=== PATIENT | female | born 1975 | race Caucasian/White ===

== ENCOUNTER 2016-11-25 09:56 | Inpatient (IN) | payer MEDICAID ==
[~2016-11-25] VITALS: Ht 157.5 cm; Wt 109.0 kg
[~2016-11-25 09:56] MED LIST: ACET325T33 PO; CALCIUM BC; CEPH-443 PO; IRON BC; PNV; PNV BC; PREN-46 PO
[2016-11-25 10:48] VITALS: BP 123/63; PULSE 75; RESP 17
[2016-11-25] MEDS: LACTATED RINGER'S 1,000 ML IV SCH ×3 (11:36→19:16)
[2016-11-25 12:07] LABS: BASOPHILS % 0.5 % (0.0-2.0); EOSINOPHILS # 0.2 10^3/ul (0.0-0.5); HEMATOCRIT 37.4 % (37.0-47.0); HEMOGLOBIN 12.9 g/dl (12.0-16.0); LYMPHOCYTES # 1.4 10^3/ul (0.8-2.9); LYMPHOCYTES % 16.8 % (15.0-51.0); MEAN CORPUSCULAR HEMOGLOBIN 30.4 pg (29.0-33.0); MEAN CORPUSCULAR HGB CONC 34.5 g/dl (32.0-37.0); MEAN CORPUSCULAR VOLUME 88.2 fl (82.0-101.0); MONOCYTE # 0.6 10^3/ul (0.3-0.9); MONOCYTES % 7.2 % (0.0-11.0); NEUTROPHIL # 5.9 10^3/ul (1.6-7.5); PLATELET COUNT 215 10^3/UL (140-415); RED BLOOD COUNT 4.24 10^6/ul (4.20-5.40); RED CELL DISTRIBUTION WIDTH 12.7 % (11.5-14.5); WHITE BLOOD COUNT 8.2 10^3/ul (4.8-10.8)
[2016-11-25 12:32] LABS: ALBUMIN 3.8 g/dl (3.3-4.9); ALBUMIN/GLOBULIN RATIO 1.11; BILIRUBIN,INDIRECT 0.2 mg/dl (0-1.1); BILIRUBIN,TOTAL 0.2 mg/dl (0.2-1.3); CALCIUM 9.1 mg/dl (8.4-10.2); CREATININE 0.53 mg/dl (0.44-1.00); POTASSIUM 3.9 mmol/L (3.5-5.1); TOTAL PROTEIN 7.2 g/dl (6.1-8.1); URIC ACID 4.8 mg/dl (3.1-7.9)
[2016-11-25 12:45] LABS: ADD UMIC NO; UR BILIRUBIN (Dip) NEGATIVE (NEGATIVE); UR BLOOD (Dip) NEGATIVE (NEGATIVE); UR CLARITY CLEAR (CLEAR); UR COLOR YELLOW (YELLOW); UR GLUCOSE (Dip) NEGATIVE (NEGATIVE); UR KETONES (Dip) NEGATIVE (NEGATIVE); UR LEUKOCYTE ESTERASE (Dip) NEGATIVE Leu/ul (NEGATIVE); UR NITRITE (Dip) NEGATIVE (NEGATIVE); UR TOTAL PROTEIN (Dip) NEGATIVE (NEGATIVE); UR UROBILINOGEN (Dip) 0.2 E.U./dL mg/dL (NEGATIVE)
--- NOTE | 2016-11-25 20:35 | HP ---
Date/Time of Note Date/Time of Note DATE: 11/25/16 TIME: 20:28 OB - History Hx of Present Chief Complaint: oligohydramnios Estimated Due Date: Jan 13, 2017 : 4 Para: 2 Spontaneous : 1 Therapeutic : 0 Care: Good Care Ultrasounds: Normal mid trimester US Obstetrical Complications: Gestational Hypertension Medical Complications: None Past Family/Social History * Past Medical, Surgical, Family and Obstetric Histories reviewed from chart. OB Admission Exam Physical Exam HEENT: WNL Heart: Rhythm Normal Lungs: Clear, Equal Abdomen: WNL Extremities: Normal Reflexes: Normal Heart Rate: 140's Accelerations: Accelerations Present Decelerations: No Decelerations Varibility: Moderate OB Assessment/Plan Reason for admission: other Other Assessment: oligohyramnios Plan: Other Other plan: IV hydration Continuous monitoring Repeat DAHLIA on 11/26/2016 Perinatology consult 24 hour urine collection PIH panel. DERECK BRIONES MD Nov 25, 2016 20:35
[2016-11-26] MEDS: LACTATED RINGER'S 1,000 ML IV SCH ×3 (03:04→18:24)
--- NOTE | 2016-11-26 08:30 | RADRPT ---
PROCEDURE: US OB. CLINICAL INDICATION: Low DAHLIA , pain TECHNIQUE: Transabdominal views of the pelvis are available for review. COMPARISON: No prior studies are available for comparison. FINDINGS: There is a single intrauterine gestation in a vertex position. The heart rate is noted at 128 bpm. The placenta is anterior. The DAHLIA measures 8.5 cm. RPTAT: AA IMPRESSION: Normal DAHLIA. .Ronald Chowdary MD, MD Date Time Electronically viewed and signed by .Ronald Chowdary MD, on 11/26/2016 08:30 .S/
--- NOTE | 2016-11-26 19:38 | QN ---
Documentation Comment No complaint Afebrile VSS Strip Category I DAHLIA improved Continue in hospital care per Perinatology Repeat DAHLIA on 11/27/2016. DERECK BRIONES MD Nov 26, 2016 19:38
[2016-11-27] MEDS: LACTATED RINGER'S 1,000 ML IV SCH (02:21)
--- NOTE | 2016-11-27 05:41 | NEURPT ---
DATE: 11/26/2016 COMMENTS: The patient was admitted to the hospital secondary to oligohydramnios that was seen in the testing clinic. Overnight, she was given fluid, and her fluid today is 8.2 cm, which is an improvement from 3 cm yesterday. She does have gestational hypertension. Her blood pressures in the hospital have been normal to moderate range. heart tone is reassuring. RECOMMENDATION: I do recommend to keep the patient overnight with IV hydration. If tomorrow her fluid remains the same, then patient can be discharged home with a follow-up on Tuesday at the perinatology clinic. If the fluid again is less than 6 cm, then patient needs to stay for IV hydration until at least Tuesday. Dictated By: Dayana Tapia MD /teresa/ananya /Document#: [id number]
--- NOTE | 2016-11-27 07:23 | RADRPT ---
PROCEDURE: US evaluation of amniotic fluid volume. CLINICAL INDICATION: Low amniotic fluid volume. TECHNIQUE: Multiple sonographic images of the gravid uterus were obtained utilizing omalley-scale wero ging. Sagittal and transverse images were obtained. The images were reviewed on a PACS workstation . DAHLIA was measured. COMPARISON: 11/26/2016. FINDINGS: There is a single live intrauterine . heart rate is 139 beats per minute. Position is cephalic. Placenta is anterior grade II with no abruption or previa. DAHLIA is 8.2 cm. (Normal = 5-20 cm.) IMPRESSION: 1. DAHLIA is 8.2 cm. RPTAT: QQ .Jesse Blanchard MD, Date Time Electronically viewed and signed by .Jesse Blanchard MD, on 11/27/2016 07:23 .R/
--- NOTE | 2016-11-27 17:38 | QN ---
Documentation Comment Patient has no complaint Afebrile VSS NST Category I DAHLIA 8.2 Per recommendation of Perinatology, D/C home. Follow up with Perinatology on 11/29/2016. DERECK BRIONES MD Nov 27, 2016 17:38
--- NOTE | 2016-11-27 17:39 | DS ---
Date/Time of Note Date/Time of Note DATE: 11/27/16 TIME: 17:38 Obstetrical Discharge Record Final Diagnosis Final Diagnosis: not delivered Other Final Diagnosis oligo hydramnios Condition on Discharge Physical Assessment Voiding: Yes Bowel Movement: Yes Calf Tenderness: No Patient Condition: Stable DERECK BRIONES MD Nov 27, 2016 17:39
--- NOTE | 2016-11-27 19:21 | QN ---
Documentation Comment Patient is 4 para 2 at 33 weeks and 2 days of gestation who was admitted for oligohydramnios VSS NST Cat 1 [place] none DAHLIA on November 25 3.2 DAHLIA on November 26 8.5 DAHLIA on November 27 8.2 PROCEDURE: US evaluation of amniotic fluid volume. CLINICAL INDICATION: Low amniotic fluid volume. TECHNIQUE: Multiple sonographic images of the gravid uterus were obtained utilizing omalley-scale imaging. Sagittal and transverse images were obtained. The images were reviewed on a PACS workstation. DAHLIA was measured. COMPARISON: 11/26/2016. FINDINGS: There is a single live intrauterine . heart rate is 139 beats per minute. Position is cephalic. Placenta is anterior grade II with no abruption or previa. DAHLIA is 8.2 cm. (Normal = 5-20 cm.) IMPRESSION: 1. DAHLIA is 8.2 cm. RPTAT: QQ .Jesse Blanchard MD, MD Date Time Electronically viewed and signed by .Jesse Blanchard MD, MD on 11/27/2016 07:23 .R/ CC: DERECK BRIONES MD Patient has been under the care of perinatologist for -induced hypertension Patient was discharged home today She has a follow-up appointment on Tuesday with the perinatologist JESÚS CALHOUN MD Nov 27, 2016 19:21
== END 2016-11-27 12:45 | disposition home or self-care (01) | DRG 782 ==
LOC: OBG 09:56 → EDSTATUS 01-12 09:54
PROVIDERS: ADMIT Obstetrics & Gynecology; ATTEND Obstetrics & Gynecology
DX: O41.03X0 Oligohydramnios, third trimester, not applicable or unspecified (principal); O09.523 Supervision of elderly multigravida, third trimester; Z3A.33 33 weeks gestation of pregnancy
CPT/HCPCS: 76815; 76816; 80053; 81003; 84112; 84560; 85025; J7120

== ENCOUNTER 2016-12-30 10:22 | Inpatient (IN) | payer MEDICAID ==
[~2016-12-30] VITALS: Ht 157.5 cm; Wt 110.0 kg
[~2016-12-30 10:22] MED LIST changes: -ACET325T33 PO; -CEPH-443 PO; -IRON BC; -PNV; -PNV BC
[2016-12-30 10:58] VITALS: Ht 157.5 cm; Wt 110.0 kg
[2016-12-30 10:59] VITALS: BP 137/79; PULSE 88
[2016-12-30] MEDS ORDERED: OXYTOCIN 30 UNITS/LR 500 ML IV SCH ×2 (11:30)
[2016-12-30] MEDS ORDERED: MISOPROSTOL 200 MCG TAB PR PRN (11:30)
[2016-12-30] MEDS ORDERED: LACTATED RINGER'S 1,000 ML IV PRN (11:30)
[2016-12-30] MEDS ORDERED: CARBOPROST 250 MCG INJ IM PRN (11:30)
[2016-12-30] MEDS ORDERED: BUTORPHANOL 2 MG INJ IV PRN ×2 (11:30)
[2016-12-30] MEDS ORDERED: LIDOCAINE 1% (MPF) 30 ML INJ INJ PRN (11:30)
[2016-12-30] MEDS ORDERED: METHYLERGONOVINE 0.2 MG INJ IM PRN (11:30)
[2016-12-30] MEDS ORDERED: OXYTOCIN 30 UNITS/LR 500 ML IV PRN (11:30)
[2016-12-30 12:19] LABS: BASOPHILS % 0.4 % (0.0-2.0); EOSINOPHILS # 0.1 10^3/ul (0.0-0.5); EOSINOPHILS % 0.8 % (0.0-7.0); HEMATOCRIT 35.7 % (37.0-47.0); HEMOGLOBIN 12.7 g/dl (12.0-16.0); LYMPHOCYTES # 1.5 10^3/ul (0.8-2.9); LYMPHOCYTES % 16.2 % (15.0-51.0); MEAN CORPUSCULAR HGB CONC 35.6 g/dl (32.0-37.0); MEAN CORPUSCULAR VOLUME 87.1 fl (82.0-101.0); MEAN PLATELET VOLUME 11.5 fl (7.4-10.4); MONOCYTE # 0.7 10^3/ul (0.3-0.9); MONOCYTES % 7.9 % (0.0-11.0); NEUTROPHIL # 6.6 10^3/ul (1.6-7.5); NEUTROPHILS % 73.4 % (39.0-77.0); PLATELET COUNT 218 10^3/UL (140-415); RED CELL DISTRIBUTION WIDTH 13.1 % (11.5-14.5)
[2016-12-30] MEDS: LACTATED RINGER'S 1,000 ML IV SCH ×3 (12:19→23:06)
[2016-12-30] MEDS ORDERED: DINOPROSTONE 10 MG VAG SUPP VAG ONE (12:30)
[2016-12-30 12:36] LABS: INR 0.99; PROTIME 13.1 Sec (12.2-14.2)
[2016-12-30 17:42] LABS: ALBUMIN 3.5 g/dl (3.3-4.9); ALBUMIN/GLOBULIN RATIO 1.09; BILIRUBIN,INDIRECT 0.1 mg/dl (0-1.1); BILIRUBIN,TOTAL 0.1 mg/dl (0.2-1.3); CALCIUM 8.5 mg/dl (8.4-10.2); CREATININE 0.51 mg/dl (0.44-1.00); POTASSIUM 3.9 mmol/L (3.5-5.1); TOTAL PROTEIN 6.7 g/dl (6.1-8.1); URIC ACID 5.8 mg/dl (3.1-7.9)
[2016-12-30 18:41] LABS: ADD UMIC NO; UR ASCORBIC ACID NEGATIVE (NEGATIVE); UR BILIRUBIN (Dip) NEGATIVE (NEGATIVE); UR BLOOD (Dip) NEGATIVE (NEGATIVE); UR CLARITY CLEAR (CLEAR); UR COLOR STRAW (YELLOW); UR GLUCOSE (Dip) NEGATIVE (NEGATIVE); UR KETONES (Dip) NEGATIVE (NEGATIVE); UR LEUKOCYTE ESTERASE (Dip) NEGATIVE Leu/ul (NEGATIVE); UR NITRITE (Dip) NEGATIVE (NEGATIVE); UR SPECIFIC GRAVITY (Dip) 1.003 (1.003-1.030); UR TOTAL PROTEIN (Dip) NEGATIVE (NEGATIVE); UR UROBILINOGEN (Dip) NEGATIVE (NEGATIVE)
[2016-12-30] MEDS ORDERED: ACETAMINOPHEN 1000MG/100ML IV 100 ML IVPB ONE (20:00)
[2016-12-31] MEDS ORDERED: OXYTOCIN 30 UNITS/LR 500 ML IV SCH
[2016-12-31] MEDS ORDERED: LACTATED RINGER'S 1,000 ML IV ONE (02:10)
[2016-12-31] MEDS ORDERED: KETOROLAC 30 MG INJ IV PRN (02:30)
[2016-12-31] MEDS ORDERED: NALOXONE (0.4 MG/ML) INJ IV PRN (02:30)
[2016-12-31] MEDS ORDERED: NALBUPHINE HCL (10 MG/1 ML) INJ IV PRN (02:30)
[2016-12-31] MEDS ORDERED: ONDANSETRON 4 MG INJ IV ONE (02:30)
[2016-12-31] MEDS ORDERED: ONDANSETRON 4 MG INJ IV PRN (02:30)
[2016-12-31] MEDS ORDERED: TRIMETHOBENZAMIDE 100 MG/ML VIAL IM PRN (02:30)
[2016-12-31] MEDS ORDERED: morphine 4 MG/ML VIAL IV PRN (02:30)
[2016-12-31] MEDS ORDERED: FENTAnyl 2MCG/ML-ROPIV 0.2% 100 ML BAG EPI SCH (02:30)
[2016-12-31] MEDS ORDERED: DIPHENHYDRAMINE 50 MG INJ IV PRN (02:30)
[2016-12-31] MEDS ORDERED: morphine 2 MG INJ IV PRN (02:30)
[2016-12-31] MEDS ORDERED: CITRIC ACID/NA CITRATE 30 ML CUP PO ONE (02:30)
[2016-12-31] MEDS: LACTATED RINGER'S 1,000 ML IV SCH (03:23)
[2016-12-31] MEDS: IBUPROFEN 600 MG TAB PO SCH ×3 (06:00→17:22)
[2016-12-31] MEDS ORDERED: LANOLIN 7 GM TUBE TOP PRN (06:00)
[2016-12-31] MEDS ORDERED: LACTATED RINGER'S 1,000 ML IV* SCH (06:00)
[2016-12-31] MEDS ORDERED: METHYLERGONOVINE 0.2 MG INJ IM PRN (06:00)
[2016-12-31] MEDS ORDERED: OXYTOCIN 30 UNITS/LR 500 ML IV PRN (06:00)
[2016-12-31] MEDS ORDERED: MISOPROSTOL 200 MCG TAB PR PRN (06:00)
[2016-12-31] MEDS ORDERED: CARBOPROST 250 MCG INJ IM PRN (06:00)
--- NOTE | 2016-12-31 06:05 | LDN ---
Date/Time of Note Date/Time of Note DATE: 12/31/16 TIME: 06:03 Delivery Summary of a viable baby girl weighing 2865 grams or 6# 5 oz, 18" long, and with Apgars of 8/9. Weeks of Gestation 38w 1d Placenta Delivered: Spontaneously Meconium: none Episiotomy: No Perineal laceration: 1 Laceration repair: First degree perineal laceration repaired with 2-0 chromic. Anesthesia type: Epidural Estimated blood loss: 200 Sponge & Needle done & correct: Yes All needle counts correct: Yes Any foreign bodies felt in the: No (vagina) Problems: Delivery Information Sex Infant Sex: female Apgars 1 Minute: 8 5 Minute: 9 Suctioning Nose & mouth suctioned at melchor: Yes Delee suction performed: No Umbilical Cord Umbilical cord with: 3 Vessels Cord presentations: no nuchal cord Mother & Baby Disposition Disposition Mom & Baby to Maternity; Good: Yes Baby to NICU: No DWAIN SOLARES MD Dec 31, 2016 06:05
--- NOTE | 2016-12-31 06:11 | HP ---
Date/Time of Note Date/Time of Note DATE: 12/31/16 TIME: 06:05 OB - History Hx of Present Free Text/Dictation 41 y.o. A1 admitted for induction of labor due to low DAHLIA. Estimated Due Date: Jan 13, 2017 : 4 Para: 2 Spontaneous : 1 Care: Good Care Ultrasounds: Normal mid trimester US, Abnormal US findings Abnormal Ultrasound Findings: Low DAHLIA of 3.6 on 12/30. Medical Complications: Cardiovascular (Chronic hypertension.) Past Family/Social History * Past Medical, Surgical, Family and Obstetric Histories reviewed from chart. Blood Type: O- Rubella: immune RPR/VDRL: Negative GBS Status: Negative HBsAG: Negative OB Admission Exam Vital Signs Vital Signs Vital Signs Date Time Temp Pulse Resp B/P Pulse Ox O2 Delivery O2 Flow Rate FiO2 12/30/16 10:59 98.0 88 137/79 Physical Exam HEENT: WNL Heart: Rhythm Normal Lungs: Clear Abdomen: WNL Extremities: Edema (2+ edema) Reflexes: Normal Cervical Dilatation: 2cm Effacement: 25% Station: -3 Membranes: Intact Amniotic Fluid: Clear Heart Rate: 130's Accelerations: Accelerations Present Decelerations: No Decelerations Varibility: Moderate Contractions on Admission: None Last 72 hours Lab Results CBC & BMP 12/30/16 12:00 Liver Function Test 12/30/16 12:00 Alanine Aminotransferase (ALT/SGPT) 37 Albumin 3.5 Alkaline Phosphatase 207 H Aspartate Amino Transf (AST/SGOT) 42 Direct Bilirubin 0.00 Total Protein 6.7 OB Assessment/Plan Reason for admission: other (Oligohydramnios) Other Assessment: Chronic hypertension. Plan: Induction Induction Method: per Misoprostol Protocol DWAIN SOLARES MD Dec 31, 2016 06:11
[2016-12-31] MEDS: OXYTOCIN 30 UNITS/LR 500 ML IV SCH ×2 (06:13→08:50)
[2016-12-31 08:00] VITALS: BP 126/67; PULSE 80; RESP 18
[2016-12-31] MEDS: SENNA TAB PO SCH ×2 (09:16→21:27)
[2016-12-31 16:00] VITALS: BP 106/56; PULSE 78; RESP 18
[2016-12-31] MEDS ORDERED: WITCH HAZEL/GLYCERIN PAD PR PRN (17:30)
[2016-12-31] MEDS ORDERED: BENZOCAINE 20% 56 ML SPRAY TOP PRN (17:30)
[2016-12-31 20:59] VITALS: BP 140/70; PULSE 92; RESP 20
[2016-12-31] MEDS: HYDROCODONE/APAP (5/325) TAB PO PRN (22:16)
[2017-01-01] VITALS: BP 113/68; PULSE 75; RESP 21
[2017-01-01] MEDS: IBUPROFEN 600 MG TAB PO SCH ×5 (00:20→23:47)
[2017-01-01 04:00] VITALS: BP 134/75; PULSE 78; RESP 21
[2017-01-01 08:00] VITALS: BP 133/79; PULSE 80; RESP 18
[2017-01-01 09:09] LABS: BASOPHILS % 0.2 % (0.0-2.0); EOSINOPHILS # 0.2 10^3/ul (0.0-0.5); EOSINOPHILS % 1.6 % (0.0-7.0); HEMATOCRIT 35.2 % (37.0-47.0); HEMOGLOBIN 11.4 g/dl (12.0-16.0); LYMPHOCYTES # 1.5 10^3/ul (0.8-2.9); LYMPHOCYTES % 15.3 % (15.0-51.0); MEAN CORPUSCULAR HEMOGLOBIN 29.4 pg (29.0-33.0); MEAN CORPUSCULAR HGB CONC 32.4 g/dl (32.0-37.0); MEAN CORPUSCULAR VOLUME 90.7 fl (82.0-101.0); MEAN PLATELET VOLUME 11.2 fl (7.4-10.4); MONOCYTE # 0.5 10^3/ul (0.3-0.9); MONOCYTES % 5.5 % (0.0-11.0); NEUTROPHIL # 7.4 10^3/ul (1.6-7.5); NEUTROPHILS % 76.3 % (39.0-77.0); PLATELET COUNT 163 10^3/UL (140-415); RED BLOOD COUNT 3.88 10^6/ul (4.20-5.40); RED CELL DISTRIBUTION WIDTH 13.7 % (11.5-14.5); WHITE BLOOD COUNT 9.7 10^3/ul (4.8-10.8)
[2017-01-01] MEDS: SENNA TAB PO SCH ×2 (09:40→21:24)
[2017-01-01] MEDS: HYDROCODONE/APAP (5/325) TAB PO PRN (09:40)
--- NOTE | 2017-01-01 12:47 | QN ---
Documentation Comment Post normal vaginal delivery day 1 Afebrile Vital signs are stable Abdomen soft Uterus firm Lochia normal Extremity normal Relation encouraged CRUZ DIALLO MD Jan 01, 2017 12:47
[2017-01-01 16:00] VITALS: BP_SYST 110; BP_SYST 115; BP_DIAS 55; BP_DIAS 68; PULSE 77; PULSE 82; RESP 18
[2017-01-01] MEDS ORDERED: INFLUENZA VIRUS VACCINE 0.5 ML SYG IM* ONE (16:00)
[2017-01-01 19:50] VITALS: BP 124/78; PULSE 72; RESP 18
[2017-01-02 04:00] VITALS: BP 129/64; PULSE 81; RESP 18
[2017-01-02] MEDS: IBUPROFEN 600 MG TAB PO SCH ×2 (05:54→12:00)
[2017-01-02 07:40] VITALS: BP 123/76; PULSE 70; RESP 19
[2017-01-02] MEDS ORDERED: DIPHTH/TET/ACEL PERTUSS (ADULT) 0.5 ML VIAL IM* ONE (09:00)
[2017-01-02] MEDS: SENNA TAB PO SCH (10:30)
--- NOTE | 2017-01-02 10:42 | PD.PPDC ---
FEEDER/FOLDER Discharge Instruction Condition Patient Condition: Good Diet Diet: Resume Regular Diet Activity/Restrictions Activity: Normal Activity May Shower Restrictions: No Exercising No Lifting No Driving No Sexual Activity Nothing in the Vagina No [place] No Tampons, douche Follow-up Follow-up with Physician: 2, Week/Weeks Provider Information: instruction given recommended to make appointment to be seen at the clinic in 2 weeks Return to clinic for [facility] NURSE PRACTITIONER Instructions: Fever greater than 101 Chills Worsening abdominal pain Excessive Vaginal Bleeding More than 2 pads per hour Unable to tolerate diet OB Instructions: Breast Tenderness Depression Blurried Vision Headache CRUZ DIALLO MD Jan 02, 2017 10:42
--- NOTE | 2017-01-02 10:44 | DS ---
Date/Time of Note Date/Time of Note DATE: 01/02/17 TIME: 10:42 Discharge Summary Admission/Discharge Info Admit Date/Time Dec 30, 2016 at 11:10 Discharge Date/Time January 02, 2017 at 1130 Discharge Diagnosis Post normal vaginal delivery day 2 Patient Condition: Fair Procedures Normal vaginal delivery Hx of Present Illness Term in labor Hospital Course Satisfactory uneventful Home Meds Reported Medications Vit #108/Iron/Fa ( ONE TABLET) 1 Each Tablet, 1 EACH PO DAILY 03/09/13 [Calcium ] No Conflict Check, BC DAILY 02/16/13 Follow-up Plan instruction given recommended to make appointment to be seen at the clinic in 2 week Primary Care Provider Care Physician No Primary Time spent on discharge: < 30 minutes CRUZ DIALLO MD Jan 02, 2017 10:44
[2017-01-02] MEDS: HYDROCODONE/APAP (5/325) TAB PO PRN (12:23)
--- NOTE | 2017-01-03 11:25 | NSTRPT ---
NST Information Datetime Report Generated by CPN: 01/03/2017 11:25 Datetime: 12/30/2016 09:25 Test Number: 13 Reason for NST: Gestational Hypertension; Other Reason for NST Other: AMA Pulse: 81 Resp: 20 SBP: 155 DBP: 94 Test Evaluation Comments: PT TO U/S, DAHLIA 3.6cm, cephalic. NST was not performed. Pt was sent to OB-TRG for low DAHLIA to be induced. Explained to pt plan of care, pt states understanding. No further questions asked at this time. Electronically Signed By E-Signature: with User ID: [email or web address] Datetime: 12/27/2016 09:15 NST Information EGA: 37.4 NST Duration (Min): 32 Datetime: 12/23/2016 08:53 NST Information EGA: 37.0 NST Duration (Min): 30 Datetime: 12/20/2016 09:01 NST Information EGA: 36.4 NST Duration (Min): 47 Datetime: 12/16/2016 08:45 NST Information EGA: 36.0 NST Duration (Min): 29 Datetime: 12/13/2016 08:56 NST Information EGA: 35.4 NST Duration (Min): 35 Datetime: 12/09/2016 08:51 NST Information EGA: 35.0 NST Duration (Min): 25 Datetime: 12/06/2016 09:10 NST Information EGA: 34.4 NST Duration (Min): 53 Datetime: 12/02/2016 08:30 NST Information EGA: 34.0 NST Duration (Min): 63 Datetime: 11/29/2016 08:42 NST Information EGA: 33.4 NST Duration (Min): 55 Datetime: 11/25/2016 08:30 NST Information EGA: 33.0 NST Duration (Min): 27 Datetime: 11/22/2016 09:42 NST Information EGA: 32.4 NST Duration (Min): 21 Datetime: 11/18/2016 11:27 NST Information EGA: 32.0 Datetime: 11/18/2016 10:06 NST Duration (Min): 45
== END 2017-01-02 13:36 | disposition home or self-care (01) | DRG 775 ==
LOC: OBT 10:22 → L-D 10:22 → OBT 11:40 → PP1 12-31 08:10
PROVIDERS: ADMIT Obstetrics & Gynecology; ATTEND Obstetrics & Gynecology
PROC: 10E0XZZ Delivery of Products of Conception, External Approach (ICD-10-PCS; principal; 2016-12-31)
PROC: 0HQ9XZZ Repair Perineum Skin, External Approach (ICD-10-PCS; 2016-12-31)
PROC: 3E0P3VZ Introduction of Hormone into Female Reproductive, Percutaneous Approach (ICD-10-PCS; 2016-12-31)
DX: O70.0 First degree perineal laceration during delivery (principal); O41.03X0 Oligohydramnios, third trimester, not applicable or unspecified; Z68.41 Body mass index [BMI] 40.0-44.9, adult; O99.214 Obesity complicating childbirth; E66.01 Morbid (severe) obesity due to excess calories; O16.4 Unspecified maternal hypertension, complicating childbirth; Z3A.38 38 weeks gestation of pregnancy; Z37.0 Single live birth
CPT/HCPCS: 62319; 80053; 81003; 84560; 85025; 85610; 85730; 86592; 86850; 86885; 86900; 86901; 88307; 90686; 99464; G0463; J0131; J0595; J2405; J2590; J2790; J3010; J7120

== ENCOUNTER 2017-01-29 07:28 | Emergency (ER) | payer MEDICAID ==
[~2017-01-29] VITALS: Ht 157.5 cm; Wt 104.1 kg
[2017-01-29 07:30] VITALS: Ht 157.5 cm; Wt 104.1 kg
[2017-01-29] MEDS ORDERED: CEPH-443 PO (07:46)
[2017-01-29] MEDS ORDERED: IBUP-1542 PO (07:46)
--- NOTE | 2017-01-29 08:04 | ERD ---
ER Documentation Chief Complaint Chief Complaint Complains of bilateral breast pain with bleeding on the right breast HPI Patient is a 41-year-old female presenting for concerns of bilateral breast pain 1 month. Patient states she gave approximately 1 month ago and is currently breast-feeding her daughter. Patient denies any complications. Patient states 2 days ago she started to have severe pain out of her left breast as well as redness surrounding her right areola. She does report bleeding and yellow discharge from her right nipple. Patient denies any fevers, chills, nausea, vomiting, chest pain, shortness of breath or loss consciousness. Patient states he been taking ibuprofen for symptoms minimal relief. ROS All systems reviewed and are negative except as per history of present illness. Medications Home Meds Active Scripts Ibuprofen* (Motrin*) 600 Mg Tab, 600 MG PO Q6, #30 TAB Prov:JUSTIN BLANCO PA-C 01/29/17 Cephalexin* (Keflex*) 500 Mg Capsule, 500 MG PO TID for 10 Days, CAP Prov:JUSTIN BLANCO PA-C 01/29/17 Reported Medications Vit #108/Iron/Fa ( ONE TABLET) 1 Each Tablet, 1 EACH PO DAILY 03/09/13 [Calcium ] No Conflict Check, BC DAILY 02/16/13 Allergies Allergies: Coded Allergies: No Known Drug Allergy (Verified Allergy, Unknown, 10/11/15) PMhx/Soc Medical and Surgical Hx: pt denies Medical Hx, pt denies Surgical Hx History of Surgery: No Anesthesia Reaction: No Hx Neurological Disorder: No Hx Respiratory Disorders: No Hx Cardiac Disorders: No Hx Psychiatric Problems: No Hx Miscellaneous Medical Probl: No Hx Alcohol Use: No Hx Substance Use: No Hx Tobacco Use: No Smoking Status: Never smoker Physical Exam Vitals Vital Signs Date Time Temp Pulse Resp B/P Pulse Ox O2 Delivery O2 Flow Rate FiO2 01/29/17 07:30 98.5 76 20 134/92 97 Physical Exam GENERAL: Well-developed, well-nourished female. Appears in no acute distress. HEAD: Normocephalic, atraumatic. EYES: Pupils are equally reactive bilaterally. EOMs grossly intact. No conjunctival erythema. ENT: Moist mucous membranes. No uvula deviation. No kissing tonsils. BREAST: Bilateral breasts without any palpable lumps or masses. R breast with minimal erythema above areola. R nipple friable and erythematous, no active bleeding or discharge elicited. LUNG: Clear to auscultation bilaterally. No rhonchi, wheezing, rales or coarse breath sounds. HEART: Regular rate and rhythm. No murmurs, rubs or gallops. EXTREMITIES: Equal pulses bilaterally. No peripheral clubbing, cyanosis or edema. No unilateral leg swelling. NEUROLOGIC: Alert and oriented. Moving all four extremities without any difficulty. Normal speech. Steady gait. SKIN: Normal color. Warm and dry. No rashes or lesions. Procedures/MDM MEDICAL DECISION MAKING: Patient is a 41-year-old female presents with bilateral breast pain as well as redness surrounding her right areola and nipple. Patient is currently feeding her baby. Vital signs were reviewed. Patient is afebrile. Patient was not hypoxic. Physical examination was consistent with early signs of mastitis. I advised the patient she should consider pumping versus allowing her to latch to her breast given the redness and pain. Warm compresses advised. Low suspicion for ACS, fibrocystic changes, breast mass, eclampsia. PRESCRIPTION: Ibuprofen, Keflex DISCHARGE: At this time, patient is stable for discharge and outpatient management. I have instructed the patient to follow-up with his/her primary care physician in 1-2 days. Follow up with OBGYN advised. I have discussed with the patient the possibility of needing to see a specialist for further workup and imaging studies if symptoms persist. I have instructed the patient to promptly return to the ER for any new or worsening symptoms including increased pain, fever, nausea, vomiting, weakness or LOC. The patient and/or family expressed understanding of and agreement with this plan. All questions were answered. Home care instructions were provided. Disclaimer: Inadvertent spelling and grammatical errors are likely due to EHR/ dictation software use and do not reflect on the overall quality of patient care. Also, please note that the electronic time recorded on this note does not necessarily reflect the actual time of the patient encounter. Departure Diagnosis: Primary Impression: nipple pain Additional Impression: Mastitis Condition: Stable Patient Instructions: Mastitis Referrals: COMMUNITY CLINICS YOU HAVE RECEIVED A MEDICAL SCREENING EXAM AND THE RESULTS INDICATE THAT YOU DO NOT HAVE A CONDITION THAT REQUIRES URGENT TREATMENT IN THE EMERGENCY DEPARTMENT. FURTHER EVALUATION AND TREATMENT OF YOUR CONDITION CAN WAIT UNTIL YOU ARE SEEN IN YOUR DOCTORS OFFICE WITHIN THE NEXT 1-2 DAYS. IT IS YOUR RESPONSIBILITY TO MAKE AN APPOINTMENT FOR FOLOW-UP CARE. IF YOU HAVE A PRIMARY DOCTOR --you should call your primary doctor and schedule an appointment IF YOU DO NOT HAVE A PRIMARY DOCTOR YOU CAN CALL OUR PHYSICIAN REFERRAL HOTLINE AT IF YOU CAN NOT AFFORD TO SEE A PHYSICIAN YOU CAN CHOSE FROM THE FOLLOWING [facility] [address] [facility] [address] [facility] [address] [facility] [address] [facility] [facility] [address] [facility]. [facility] [address] [facility] [facility] YOU HAVE RECEIVED A MEDICAL SCREENING EXAM AND THE RESULTS INDICATE THAT YOU DO NOT HAVE A CONDITION THAT REQUIRES URGENT TREATMENT IN THE EMERGENCY DEPARTMENT. FURTHER EVALUATION AND TREATMENT OF YOUR CONDITION CAN WAIT UNTIL YOU ARE SEEN IN YOUR DOCTORS OFFICE WITHIN THE NEXT 1-2 DAYS. IT IS YOUR RESPONSIBILITY TO MAKE AN APPOINTMENT FOR FOLOW-UP CARE. IF YOU HAVE A PRIMARY DOCTOR --you should call your primary doctor and schedule and appointment IF YOU DO NOT HAVE A PRIMARY DOCTOR YOU CAN CALL OUR PHYSICIAN REFERRAL HOTLINE AT . IF YOU CAN NOT AFFORD TO SEE A PHYSICIAN YOU CAN CHOSE FROM THE FOLLOWING [facility]: [facility] [address] [place] [address] [facility] [address] [place] [address] [facility] [address] [address] [employer] [place] [address] [facility] [address] [place] [address] OFFICE FAX NICOLA GRAHAM [address] [place] [address] DR. BRIONESFORMERLY [facility] [address] [place] [address] [address] ROWAN, [facility] [address] [facility], [address] [address] [address] SHARMA, [facility] [address] [facility], [place] [address] [facility] [address] [place] [address] [facility], [facility] [address] - [address] SOLARES, DWAIN [address] [facility] [address] [address] HENLEY, MELODY [address] [facility]. [address], [facility] [address] [address] NGO, [facility] [address] [place], [place] [id number] Additional Instructions: Call your primary care doctor TOMORROW for an appointment during the next 1-2 days.See the doctor sooner or return here if your condition worsens before your appointment time. JUSTIN BLANCO PA-C Jan 29, 2017 08:04
== END 2017-01-29 07:53 | disposition home or self-care (01) ==
LOC: FTE 07:28
DX: O92.29 Other disorders of breast associated with pregnancy and the puerperium (principal)
CPT/HCPCS: 99283

== ENCOUNTER 2017-11-15 13:05 | Emergency (ER) | END 2017-11-15 15:30 | disposition home or self-care (01) ==

== ENCOUNTER 2018-10-15 05:09 | Emergency (ER) | payer MEDICAID ==
[~2018-10-15] VITALS: Ht 157.5 cm; Wt 106.2 kg
[~2018-10-15 05:09] MED LIST changes: +AMOX1TAB10 PO; +CEPH-443 PO; +IBUP-1542 PO; +ONDA8TAB14 PO
[2018-10-15 05:13] VITALS: BP 153/98; PULSE 108; RESP 17; Ht 157.5 cm; Wt 106.2 kg
== END 2018-10-15 06:08 | disposition home or self-care (01) ==
LOC: FTE 05:09
DX: H66.002 Acute suppurative otitis media without spontaneous rupture of ear drum, left ear (principal)
CPT/HCPCS: 99283